=== PATIENT | female | born 1965 | race Caucasian/White ===

== ENCOUNTER 2018-01-12 09:25 | Emergency (ER) | payer BC, OTHER ==
[~2018-01-12] VITALS: Ht 167.6 cm; Wt 98.0 kg
[2018-01-12] MEDS ORDERED: OXYC-295 PO (10:04)
[2018-01-12] MEDS ORDERED: ATOR80TA PO (10:04)
[2018-01-12] MEDS ORDERED: ENAL5TAB PO (10:04)
[2018-01-12] MEDS ORDERED: MECLIZINE CHEWABLE 25 MG TAB ONE (10:14)
[2018-01-12 10:21] LABS: MICROSCOPIC AUTO
[2018-01-12 10:24] LABS: CULTURE INDICATED? YES
[2018-01-12] MEDS ORDERED: MECLIZINE CHEWABLE 25 MG TAB PO ONE (10:30)
[2018-01-12 10:34] LABS: BASOPHILS # (AUTO) 0.09 x10^3/uL (0-0.1); BASOPHILS % (AUTO) 1 % (0-1); EOSINOPHILS # (AUTO) 0.22 x10^3/uL (0-0.4); EOSINOPHILS % (AUTO) 1 % (1-7); LYMPHOCYTES # (AUTO) 2.57 x10^3/uL (1-3.4); LYMPHOCYTES % (AUTO) 15 % (22-44); MD NO; MEAN CORPUSCULAR HEMOGLOBIN 32.7 pg (27.0-34.8); MEAN CORPUSCULAR HGB CONC 34.2 g/dL (32.4-35.8); MEAN CORPUSCULAR VOLUME 95.7 fL (80-100); MEAN PLATELET VOLUME 8.3 fL (7.4-10.4); MONOCYTES # (AUTO) 1.06 x10^3/uL (0.2-0.8); MONOCYTES % (AUTO) 6 % (2-9); NEUTROPHILS # (AUTO) 13.12 x10^3/uL (1.8-6.8); NEUTROPHILS % (AUTO) 77 % (42-75); PLATELET COUNT 324 x10^3/uL (130-400); RED BLOOD COUNT 4.51 x10^6/uL (3.82-5.3); RED CELL DISTRIBUTION WIDTH 13.1 % (9.6-15.2)
[2018-01-12 10:36] LABS: ALANINE AMINOTRANSFERASE 52 U/L (12-78); ALBUMIN 3.7 g/dL (3.4-5.0); ANION GAP 6 mmol/L (5-15); CALCIUM 8.8 mg/dL (8.5-10.1); CHLORIDE 109 mmol/L (98-107); CREATININE 0.72 mg/dL (0.55-1.02)
[2018-01-12 10:46] LABS: ALKALINE PHOSPHATASE 61 U/L (45-117); BILIRUBIN,TOTAL 0.2 mg/dL (0.2-1.0)
[2018-01-12 12:28] VITALS: BP 131/80
== END 2018-01-12 12:31 | disposition home or self-care (01) ==
LOC: ED 12:00
DX: H53.2 Diplopia (principal); R42 Dizziness and giddiness; G43.909 Migraine, unspecified, not intractable, without status migrainosus; R82.99 Other abnormal findings in urine; Z86.73 Personal history of transient ischemic attack (TIA), and cerebral infarction without residual deficits; Z90.49 Acquired absence of other specified parts of digestive tract
CPT/HCPCS: 36415; 80053; 81001; 84443; 85025; 87086; 93005; 99285